=== PATIENT | male | born 2000 | race African-American/Black ===

== ENCOUNTER 2021-04-08 08:18 | Emergency (ER) | payer SELFPAY ==
[2021-04-08] MEDS ORDERED: Acetaminophen 500 MG TAB ONE (09:06)
[2021-04-08] MEDS ORDERED: Ibuprofen 800 MG TAB ONE (09:06)
[2021-04-08 14:37] LABS: SARS-CoV-2 PCR by NAA Not Detected (NotDetected)
== END 2021-04-08 10:04 | disposition home or self-care (01) ==
LOC: ERS 08:18
DX: B34.9 Viral infection, unspecified (principal); Z20.822 Contact with and (suspected) exposure to COVID-19
CPT/HCPCS: 87081; 87430; 99284; U0003; U0005